=== PATIENT | male | born 1930 | race Caucasian/White ===

== ENCOUNTER 2017-03-07 08:09 | Emergency (ER) | payer MEDICARE, OTHER ==
[~2017-03-07] VITALS: Ht 170.2 cm; Wt 68.0 kg
[~2017-03-07 08:09] MED LIST: LOSA25TA13 PO
[2017-03-07] MEDS: predniSONE 10 MG TABLET PO ONE (08:24)
--- NOTE | 2017-03-07 08:24 | NUR ---
pt is in room #1b. dr marte evaluated the pt.
[2017-03-07] MEDS: IPRATROPIUM BROMIDE 0.5 MG/2.5 ML NEBU NEB ONE (08:28)
[2017-03-07] MEDS: ALBUTEROL SULFATE 2.5 MG/3 ML NEBU NEB ONE (08:28)
[2017-03-07] MEDS ORDERED: IPRATROPIUM BROMIDE 0.5 MG/2.5 ML NEBU ONE (08:34)
[2017-03-07] MEDS ORDERED: ALBUTEROL SULFATE 2.5 MG/3 ML NEBU ONE (08:34)
[2017-03-07] MEDS ORDERED: predniSONE 50 MG TABLET ONE (08:36)
[2017-03-07] MEDS ORDERED: predniSONE 10 MG TABLET ONE (08:37)
[2017-03-07 08:42] LABS: BASOPHILS % (AUTO) 0.5 % (0.0-2.0); EOSINOPHILS % (AUTO) 17.1 % (0.0-7.0); HEMATOCRIT 43.8 % (40-50); HEMOGLOBIN 14.6 G/DL (14.0-18.0); LYMPHOCYTES # (AUTO) 0.9 K/UL (0.8-4.8); LYMPHOCYTES % (AUTO) 16.4 % (20.5-51.5); MEAN CORPUSCULAR HEMOGLOBIN 29.6 UUG (27.0-31.0); MEAN CORPUSCULAR HGB CONC 33 g/dL (32.0-37.0); MEAN CORPUSCULAR VOLUME 88.9 FL (82.0-92.0); MONOCYTES # (AUTO) 0.8 K/UL (0.1-1.30); MONOCYTES % (AUTO) 13.7 % (0.0-11.0); NEUTROPHILS # (AUTO) 2.9 K/UL (1.8-8.9); NEUTROPHILS % (AUTO) 52.3 % (38.5-71.5); PLATELET COUNT (AUTO) 231 K/UL (150-450); RED BLOOD CELL COUNT(AUTO) 4.92 MIL/UL (4.7-6.1); RED CELL DISTRIBUTION WIDTH 11.5 % (11.5-14.5); WHITE BLOOD COUNT (AUTO) 5.6 K/UL (4.0-11.2)
[2017-03-07 08:46] LABS: CALCIUM 9.1 mg/dL (8.5-10.1)
[2017-03-07 08:48] LABS: CREATININE 1.4 mg/dL (0.6-1.3)
[2017-03-07 08:56] LABS: TROPONIN I < 0.017 ng/mL (0.00-0.056)
[2017-03-07 09:02] LABS: LACTIC ACID 1.2 mmol/L (0.4-2.0)
--- NOTE | 2017-03-07 09:12 | NUR ---
pt was d/c to home. d/c instructions given to the pt.
[2017-03-07 09:13] VITALS: BP 132/75
== END 2017-03-07 09:18 | disposition home or self-care (01) ==
LOC: ER 08:09
DX: J20.9 Acute bronchitis, unspecified (principal); I10 Essential (primary) hypertension
CPT/HCPCS: 36415; 70030-TC; 71010; 83605; 85025; 87040; 93005; A4663; J3590; J7512

== ENCOUNTER 2017-03-16 11:49 | Emergency (ER) | payer MEDICARE, OTHER ==
[~2017-03-16] VITALS: Ht 170.2 cm; Wt 70.3 kg
[2017-03-16] MEDS ORDERED: ALBUTEROL SULFATE 2.5 MG/3 ML NEBU NEB ONE ×2 (12:15→14:00)
[2017-03-16] MEDS ORDERED: ALBUTEROL SULFATE 2.5 MG/3 ML NEBU ONE ×2 (12:26→14:14)
--- NOTE | 2017-03-16 15:00 | NUR ---
DR LINDO AT BEDSIDE MADE PATIENT AWARE OF TEST RESULTS WILL BE DC HOME.
--- NOTE | 2017-03-16 15:02 | NUR ---
Patient discharged to home in stable conditon. Written and verbal after care instructions given. Patient verbalizes understanding of instructions.
== END 2017-03-16 15:04 | disposition home or self-care (01) ==
LOC: ER 11:49
DX: J20.9 Acute bronchitis, unspecified (principal); I10 Essential (primary) hypertension
CPT/HCPCS: 71010; 94640; A4663

== ENCOUNTER 2017-05-11 16:52 | Emergency (ER) | payer MEDICARE, OTHER ==
[~2017-05-11] VITALS: Ht 170.2 cm; Wt 68.0 kg
--- NOTE | 2017-05-11 17:13 | NUR ---
PT IS IN ROOM #2A. DR ESPINOSA EVALUATED THE PT.
[2017-05-11] MEDS ORDERED: TDAP DIPH,PERTUSS,TET VAC/PF 0.5 ML DISP.SYRIN IM ONE ×2 (17:15→17:58)
--- NOTE | 2017-05-11 18:54 | NUR ---
DR STEVENSON EVALUATED THE PT. PT WAS D/C TO HOME WITH HIS RELATIVES. D/C INSTRUCTIONS GIVEN TO THE PT BY DR STEVENSON. PT DENIES PAIN. NO BLEEDING. PT's GAIT IS STABLE.
[2017-05-11 18:59] VITALS: BP 141/75
[2017-05-11] MEDS ORDERED: CEPHALEXIN MONOHYDRATE 500 MG CAPSULE PO ONE (19:00)
[2017-05-11] MEDS ORDERED: CEPHALEXIN MONOHYDRATE 500 MG CAPSULE ONE (19:21)
== END 2017-05-11 19:10 | disposition home or self-care (01) ==
LOC: ER 16:52
DX: S02.2XXA Fracture of nasal bones, initial encounter for closed fracture (principal); S09.8XXA Other specified injuries of head, initial encounter; I10 Essential (primary) hypertension; R04.0 Epistaxis; W01.0XXA Fall on same level from slipping, tripping and stumbling without subsequent striking against object, initial encounter; Y93.89 Activity, other specified; Y92.89 Other specified places as the place of occurrence of the external cause; Y99.9 Unspecified external cause status
CPT/HCPCS: 70450; 70486; 90715; A4663

== ENCOUNTER 2018-01-11 09:15 | Emergency (ER) | payer MEDICARE, OTHER ==
[~2018-01-11] VITALS: Ht 170.2 cm; Wt 70.3 kg
[2018-01-11] MEDS ORDERED: ALBUTEROL SULFATE 2.5 MG/3 ML NEBU ONE (09:41)
[2018-01-11] MEDS ORDERED: IPRATROPIUM BROMIDE 0.5 MG/2.5 ML NEBU ONE (09:41)
[2018-01-11] MEDS ORDERED: ALBUTEROL SULFATE 2.5 MG/3 ML NEBU NEB ONE (09:45)
[2018-01-11] MEDS ORDERED: IPRATROPIUM BROMIDE 0.5 MG/2.5 ML NEBU NEB ONE (09:45)
--- NOTE | 2018-01-11 10:10 | NUR ---
Patient discharged to home in stable conditon. Written and verbal after care instructions given to patient and spouse. Patient and family verbalized understanding of instructions. Patient left ER with slow steady gait.
== END 2018-01-11 10:11 | disposition home or self-care (01) ==
LOC: ER 09:16
DX: J20.9 Acute bronchitis, unspecified (principal); I10 Essential (primary) hypertension; Z79.899 Other long term (current) drug therapy
CPT/HCPCS: A4663; J3590

== ENCOUNTER 2019-02-16 20:05 | Inpatient (IN) | payer MEDICARE, OTHER ==
[~2019-02-16] VITALS: Ht 167.6 cm; Wt 29.5 kg
[~2019-02-16 20:05] MED LIST changes: -LOSA25TA13 PO; +LOSA25TA27 PO
--- NOTE | 2019-02-16 20:05 | NUR ---
Dr. Barajas at bedside for MSE.
--- NOTE | 2019-02-16 20:33 | NUR ---
Pt out of ER for CT.
[2019-02-16 20:34] LABS: BASOPHILS % (AUTO) 0.5 % (0.0-2.0); EOSINOPHILS # (AUTO) 0.5 K/uL (0.0-0.7); EOSINOPHILS % (AUTO) 6.8 % (0.0-7.0); HEMATOCRIT 42.4 % (36.7-47.1); HEMOGLOBIN 14.5 g/dL (12.5-16.3); LYMPHOCYTES # (AUTO) 2.3 K/uL (20.0-40.0); LYMPHOCYTES % (AUTO) 34.9 % (20.5-51.5); MEAN CORPUSCULAR HGB CONC 34 g/dL (32.5-36.3); MEAN CORPUSCULAR VOLUME 90.9 fL (73.0-96.2); MONOCYTES # (AUTO) 0.8 K/uL (2.0-10.0); MONOCYTES % (AUTO) 11.5 % (0.0-11.0); NEUTROPHILS # (AUTO) 3.1 K/uL (1.8-8.9); NEUTROPHILS % (AUTO) 46.3 % (38.5-71.5); PLATELET COUNT (AUTO) 248 K/uL (152-348); RED BLOOD CELL COUNT(AUTO) 4.67 MIL/uL (4.06-5.63); WHITE BLOOD COUNT (AUTO) 6.7 K/uL (3.6-10.2)
--- NOTE | 2019-02-16 20:35 | NUR ---
Pt provided urine sample, sent to lab.
[2019-02-16 20:39] LABS: CARBON DIOXIDE 24 mmol/L (21-32); CHLORIDE 107 mmol/L (98-107); CREATININE 1.3 mg/dL (0.6-1.3); GLUCOSE 83 mg/dL (74-106); POTASSIUM 4.5 mmol/L (3.5-5.1); UREA NITROGEN, BLOOD 32 mg/dL (7-18)
--- NOTE | 2019-02-16 20:42 | NUR ---
Pt back to ER from CT.
[2019-02-16 20:52] LABS: ALANINE AMINOTRANSFERASE 24 U/L (16-63); ALKALINE PHOSPHATASE 97 U/L (50-136); ASPARTATE AMINOTRANSFERASE 12 U/L (15-37); BILIRUBIN,DIRECT 0.1 mg/dL (0.0-0.2); BILIRUBIN,TOTAL 0.5 mg/dL (0.2-1.0); TOTAL PROTEIN, SERUM 7.1 g/dL (6.4-8.2)
[2019-02-16 21:02] LABS: *BILIRUBIN,URIN NEGATIVE (NEGATIVE); *BLOOD, URINE NEGATIVE (NEGATIVE); *CLARITY,URINE CLEAR (CLEAR); *COLOR,URINE YELLOW (YELLOW); *KETONES,URINE NEGATIVE (NEGATIVE); *UROBILINOGEN,URINE 0.2 E.U./dl (NORMAL); LEUKOCYTE ESTERASE ,URINE NEGATIVE (NEGATIVE); NITRITE, URINE NEGATIVE (NEGATIVE); UGLUCOSE NEGATIVE (NEGATIVE)
--- NOTE | 2019-02-16 21:39 | NUR ---
Called [facility] to page Dr. Danielle.
[2019-02-16] MEDS ORDERED: CEFTRIAXONE 1 G VIAL ONE (21:43)
[2019-02-16] MEDS ORDERED: ASPIRIN 81 MG TAB.CHEW ONE (21:43)
[2019-02-16] MEDS ORDERED: CEFTRIAXONE 1 G in IV DEXTROSE 5% 50 ML IV ONE (21:45)
[2019-02-16] MEDS ORDERED: ASPIRIN 81 MG TAB.CHEW PO ONE (21:45)
[2019-02-16] MEDS ORDERED: AZITHROMYCIN IV 500 MG in IV DEXTROSE 5% 250 ML IV ONE (21:45)
[2019-02-16] MEDS ORDERED: AZITHROMYCIN 500 MG VIAL IV ONE (21:52)
--- NOTE | 2019-02-16 22:25 | NUR ---
Dr. Barajas speaking with Dr. Rivera. Pt accepted for admission to [facility], diagnosis: altered mental status, possible pneumonia.
--- NOTE | 2019-02-16 22:40 | NUR ---
Report given to Josh MCCLELLAN Tele.
[2019-02-17] VITALS: BP 131/82
[2019-02-17] MEDS ORDERED: VALS80TA2 PO (00:09)
[2019-02-17 04:00] VITALS: BP 150/68
[2019-02-17] MEDS ORDERED: ACETAMINOPHEN 325 MG TABLET PO PRN (05:15)
[2019-02-17] MEDS ORDERED: MAGNESIUM HYDROXIDE 30 ML LIQUID UDC PO PRN (05:15)
[2019-02-17] MEDS ORDERED: ZOLPIDEM 5 MG TABLET PO PRN (05:15)
[2019-02-17] MEDS ORDERED: ONDANSETRON 4 MG/2 ML VIAL IV PRN (05:15)
[2019-02-17] MEDS ORDERED: Z GUARD REMEDY PASTE 57 GM TUBE TOP PRN (05:15)
[2019-02-17 07:06] LABS: CARBON DIOXIDE 25 mmol/L (21-32); CHLORIDE 108 mmol/L (98-107); CREATININE 1.3 mg/dL (0.6-1.3); GLUCOSE 77 mg/dL (74-106); MAGNESIUM 1.8 mg/dL (1.8-2.4); PHOSPHOROUS 3.9 mg/dL (2.5-4.9); POTASSIUM 4.2 mmol/L (3.5-5.1); UREA NITROGEN, BLOOD 27 mg/dL (7-18)
[2019-02-17 07:08] LABS: THYROID STIMULATING HORMONE 2.276 mIU/mL (0.358-3.740)
[2019-02-17 07:31] LABS: BASOPHILS % (AUTO) 0.5 % (0.0-2.0); EOSINOPHILS # (AUTO) 0.5 K/uL (0.0-0.7); HEMATOCRIT 39.3 % (36.7-47.1); HEMOGLOBIN 13.5 g/dL (12.5-16.3); LYMPHOCYTES # (AUTO) 1.7 K/uL (20.0-40.0); LYMPHOCYTES % (AUTO) 25.6 % (20.5-51.5); MEAN CORPUSCULAR HEMOGLOBIN 30.9 uug (23.8-33.4); MEAN CORPUSCULAR HGB CONC 34 g/dL (32.5-36.3); MEAN CORPUSCULAR VOLUME 90.1 fL (73.0-96.2); MONOCYTES # (AUTO) 0.7 K/uL (2.0-10.0); MONOCYTES % (AUTO) 10.1 % (0.0-11.0); NEUTROPHILS # (AUTO) 3.9 K/uL (1.8-8.9); NEUTROPHILS % (AUTO) 56.8 % (38.5-71.5); PLATELET COUNT (AUTO) 223 K/uL (152-348); RED BLOOD CELL COUNT(AUTO) 4.36 MIL/uL (4.06-5.63); WHITE BLOOD COUNT (AUTO) 6.8 K/uL (3.6-10.2)
--- NOTE | 2019-02-17 08:00 | NUR ---
Pt alert and oriented. Pt speaks few Solomon Islander but able to make his needs known. Pt had poor balance when ambulated to bathroom - ordered PT eval. IV patent and no s/s of infiltration. Dr Hong here to see patient. Reconciled home meds re: DIOVAN 80 mg PO Daily ordered per DR Hong.
[2019-02-17] MEDS: VALSARTAN 80 MG TABLET PO SCH (10:05)
[2019-02-17] MEDS: IV 1/2NS 1000 ML 1,000 ML IV PRN (10:06)
[2019-02-17 11:29] VITALS: BP 154/70
--- NOTE | 2019-02-17 12:00 | NUR ---
Pt seen by physical therapy. FWW set up for patient to take home.
[2019-02-17 15:35] VITALS: BP 124/64
--- NOTE | 2019-02-17 18:30 | NUR ---
at bedside states that his is having a hard time "finishing his sentence" and pt is not on his baseline. No drift noted. Deficits noted or weakness. Smiles are equal. Strength equal on both sides on upper and lower extremities. Notified Dr DEL ROSARIO of wifes concerns and gave result of HEAD CT and ok for pt to have a neurology eval. Spoke with Dr sorensen notified of request for neuro evaluation. Pt is in no acute distress. Call light is within reach.
--- NOTE | 2019-02-17 19:30 | NUR ---
Received patient awake and alert in bed with son and at bedside. No signs of acute distress noted. No complaints of pain or SOB. IVF running on the right forearm Safety measures initiated. Bed is low and locked, call light within reach. Will continue to monitor.
[2019-02-17 20:05] VITALS: BP 99/80
[2019-02-17] MEDS ORDERED: CEFTRIAXONE 1 G VIAL IM SCH (21:00)
[2019-02-17] MEDS: CULTURELLE CAPSULE PO SCH (21:25)
[2019-02-17] MEDS: CEFTRIAXONE 1 G in IV DEXTROSE 5% 50 ML IV SCH (22:04)
[2019-02-17] MEDS: HYDROCODONE/APAP 5-325MG TABLET PO PRN (23:05)
[2019-02-17] MEDS: AZITHROMYCIN IV 500 MG in IV DEXTROSE 5% 250 ML IV SCH (23:13)
[2019-02-18] MEDS: HYDROCODONE/APAP 5-325MG TABLET PO PRN (03:19)
--- NOTE | 2019-02-18 06:17 | NUR ---
Patient was very confused. Trying to get out of bed wanting to go home. Put order in for 1:1 sitter. Tried to call on-call for an order of Ativan, but no call back. Patient finally fell asleep around 5AM. No signs of acute distress noted. No signs of pain or SOB. IV on the right forearm is intact and patent. Safety measures given.
[2019-02-18 06:18] LABS: BASOPHILS % (AUTO) 0.1 % (0.0-2.0); EOSINOPHILS % (AUTO) 0.2 % (0.0-7.0); HEMATOCRIT 37.7 % (36.7-47.1); HEMOGLOBIN 12.9 g/dL (12.5-16.3); LYMPHOCYTES # (AUTO) 1.1 K/uL (20.0-40.0); MEAN CORPUSCULAR HGB CONC 34 g/dL (32.5-36.3); MEAN CORPUSCULAR VOLUME 90.4 fL (73.0-96.2); MONOCYTES # (AUTO) 0.7 K/uL (2.0-10.0); MONOCYTES % (AUTO) 8.6 % (0.0-11.0); NEUTROPHILS # (AUTO) 6.4 K/uL (1.8-8.9); NEUTROPHILS % (AUTO) 78.1 % (38.5-71.5); PLATELET COUNT (AUTO) 237 K/uL (152-348); RED BLOOD CELL COUNT(AUTO) 4.17 MIL/uL (4.06-5.63); WHITE BLOOD COUNT (AUTO) 8.2 K/uL (3.6-10.2)
[2019-02-18 06:20] LABS: CARBON DIOXIDE 23 mmol/L (21-32); CHLORIDE 107 mmol/L (98-107); CHOLESTEROL 181 mg/dL (<200); CREATININE 1.4 mg/dL (0.6-1.3); GLUCOSE 97 mg/dL (74-106); HDL CHOLESTEROL 45 mg/dL (40-60); MAGNESIUM 1.7 mg/dL (1.8-2.4); PHOSPHOROUS 3.5 mg/dL (2.5-4.9); POTASSIUM 3.8 mmol/L (3.5-5.1); TRIGLYCERIDES 60 MG/DL (30-150); UREA NITROGEN, BLOOD 28 mg/dL (7-18)
[2019-02-18 06:32] VITALS: BP 111/75
--- NOTE | 2019-02-18 07:15 | NUR ---
PATIENT RECEIVED IN BED, AOX2. 1:1 SITTER AT BEDSIDE. PATENT DENIES PAIN OR SOB AT THIS TIME. ALL NEEDS MET. SAFETY AND FALL PREVENTION IN PLACE. BED IN LOW POSITION AND LOCKED. CALL LIGHT IN REACH. WILL CONTINUE TO MONITOR.
[2019-02-18 07:30] VITALS: BP 137/61
[2019-02-18] MEDS: CULTURELLE CAPSULE PO SCH ×2 (08:08→21:06)
[2019-02-18] MEDS: VALSARTAN 80 MG TABLET PO SCH (08:09)
[2019-02-18] MEDS: IV 1/2NS 1000 ML 1,000 ML IV PRN (09:22)
[2019-02-18] MEDS ORDERED: MAGNESIUM OXIDE 400 MG TABLET PO ONE (10:30)
[2019-02-18 12:30] VITALS: BP 125/60
[2019-02-18 16:30] VITALS: BP 118/56
--- NOTE | 2019-02-18 19:30 | NUR ---
Received patient awake and alert in chair with family and 1:1 sitter. No signs of acute distress noted. No signs of pain or SOB, patient is on room air saturating at 97% IVF running on the right forearm. Safety measures initiated. Call light within reach. Will continue to monitor.
--- NOTE | 2019-02-18 19:42 | NUR ---
REPORT GIVEN TO NIGHT RN. PATIENT AOX2. 1:1 SITTER AT BEDSIDE. LT. FA IV WITH 1/2NS AT 70 CC/HT. VITAL SIGNS STABLE THROUGHOUT THE SHIFT. PATIENT COMPLIANT WITH ALL CARE. SAFETY AND FALL PREVENTION IN PLACE. CALL LIGHT IN REACH. BED IN LOW AND LOCKED POSITION.
[2019-02-18 20:05] VITALS: BP 143/67
[2019-02-18] MEDS: CEFTRIAXONE 1 G in IV DEXTROSE 5% 50 ML IV SCH (21:53)
[2019-02-18] MEDS: AZITHROMYCIN IV 500 MG in IV DEXTROSE 5% 250 ML IV SCH (22:31)
[2019-02-19] MEDS: IV 1/2NS 1000 ML 1,000 ML IV PRN (03:03)
[2019-02-19 05:13] VITALS: BP 104/66
--- NOTE | 2019-02-19 06:14 | NUR ---
Patient slept well throughout the shift. 1:1 sitter at bedside. Patient was less confused and agitated than previous night. Still tries to get up without calling for help. Medications given as ordered, Safety measures given.
[2019-02-19 06:34] LABS: CARBON DIOXIDE 24 mmol/L (21-32); CHLORIDE 109 mmol/L (98-107); CREATININE 1.3 mg/dL (0.6-1.3); GLUCOSE 86 mg/dL (74-106); MAGNESIUM 2.2 mg/dL (1.8-2.4); POTASSIUM 4.4 mmol/L (3.5-5.1); UREA NITROGEN, BLOOD 31 mg/dL (7-18)
--- NOTE | 2019-02-19 07:12 | NUR ---
Patient in bed laying comfortably with 1:1 sitter at bedside. no SON , no c/o pain at this time. bed in low position, with 2 drill press operator numerical control rails up and bed alarm, kept clean and dry at all times, Safety measures given. Will continue to monitor.
[2019-02-19] MEDS: CULTURELLE CAPSULE PO SCH ×2 (08:21→20:16)
[2019-02-19] MEDS: VALSARTAN 80 MG TABLET PO SCH (08:21)
[2019-02-19 11:13] VITALS: BP 118/55
[2019-02-19] MEDS: ATORVASTATIN 20 MG TABLET PO SCH ×2 (12:43→20:16)
[2019-02-19] MEDS: ASPIRIN EC 81 MG TABLET.DR PO SCH (12:43)
[2019-02-19 15:36] VITALS: BP 149/73
--- NOTE | 2019-02-19 18:38 | NUR ---
Patient in bed laying comfortably with 1:1 sitter at bedside. No SOB noted , No c/o pain at this time. bed in low position, with 2 crayon painter rails up and bed alarm, kept clean and dry at all times, Safety measures given. Will continue to monitor and continue treatment.
[2019-02-19 20:00] VITALS: BP 148/79
--- NOTE | 2019-02-19 20:00 | NUR ---
RECEIVED PATIENT AWAKE, SITTING AT BEDSIDE WITH FAMILY AND 1:1 SITTER. PATIENT IS A/O X3. FARSI SPEAKING. NO C/O PAIN OR DISCOMFORT. H/L INTACT AND PATENT. CALL LIGHT IN REACH. ALL NEEDS ATTENDED, WILL CONTINUE TO MONITOR AND ASSESS.
[2019-02-19] MEDS: CEFTRIAXONE 1 G in IV DEXTROSE 5% 50 ML IV SCH (21:20)
[2019-02-19] MEDS ORDERED: AZITHROMYCIN 250 MG TABLET PO SCH (22:00)
[2019-02-20] MEDS: IV 1/2NS 1000 ML 1,000 ML IV PRN (05:45)
--- NOTE | 2019-02-20 05:52 | NUR ---
PATIENT ASLEEP IN BED. SITTER PRESENT AT BEDSIDE. PATIENT SLEPT WELL THROUGHOUT THE NIGHT. BED ALARM ON. CALL LIGHT IN REACH. ALL NEEDS ATTENDED. WILL CONTINUE TO MONITOR AND ASSESS.
[2019-02-20 06:44] VITALS: BP 154/60
[2019-02-20] MEDS: ASPIRIN EC 81 MG TABLET.DR PO SCH (08:01)
[2019-02-20] MEDS: VALSARTAN 80 MG TABLET PO SCH (08:07)
[2019-02-20] MEDS: CULTURELLE CAPSULE PO SCH (08:08)
--- NOTE | 2019-02-20 10:53 | NUR ---
Received patient awake in bed. AOx2. Continue with 1:1 sitter for safety. Continue ATB treatment for PNE. no adverse reaction noted. Continue IV 0.45% NS @ 75cc/hr. infusing well. IV site on right forearm G20. no signs of infiltration noted. will continue monitor
[2019-02-20 12:05] VITALS: BP 121/56
[2019-02-20] MEDS ORDERED: ATOR20TA PO (13:40)
[2019-02-20] MEDS ORDERED: ASPI-618 PO (13:40)
[2019-02-20 15:30] VITALS: BP 120/66
== END 2019-02-20 19:38 | DRG 193 ==
LOC: ER 20:07 → TELE3 22:48 → MEDSURG3 02-17 18:09
PROVIDERS: ADMIT Internal Medicine; ATTEND Internal Medicine
DX: J15.9 Unspecified bacterial pneumonia (principal); G92 Toxic encephalopathy; I63.9 Cerebral infarction, unspecified; N17.0 Acute kidney failure with tubular necrosis; R47.01 Aphasia; E86.9 Volume depletion, unspecified; I10 Essential (primary) hypertension; I70.0 Atherosclerosis of aorta; F03.90 Unspecified dementia, unspecified severity, without behavioral disturbance, psychotic disturbance, mood disturbance, and anxiety
CPT/HCPCS: 36415; 70030-TC; 70450; 71045; 82747; 83605; 83735; 84100; 84443; 85014; 85025; 85730; 86592; 87040; 87086; 93005; 97110; 97116; 97530; A4663; G0378; J0456; J0696; J3490; J7060; Q0144

== ENCOUNTER 2019-02-20 18:00 | Inpatient (IN) | payer MEDICARE, OTHER ==
[~2019-02-20] VITALS: Ht 170.2 cm; Wt 74.8 kg
[~2019-02-20 18:00] MED LIST changes: +ASPI-618 PO; +ATOR20TA PO; -LOSA25TA27 PO; +VALS80TA2 PO
--- NOTE | 2019-02-20 21:24 | NUR ---
Admitting this 88 y/o M from 3rd floor med surg at [facility] with diagnosis of Right CVA. No acute distress noted. Primarily Farsi speaking but able to communicate basic needs in Icelandic. Verbally responsive and able to communicate basic needs. Denies pain or discomfort. Routine admission care done. Oriented to unit, room and therapy schedule. Skin warm, dry and intact. Ambulatory to restroom x 1 assist. NIH stroke scale completed. Under [facility] nephrology medical group, Dr. Britt notified and verbalized that he will complete med recon via computer. Dr. Kay made aware of admission. All safety measures and fall precautions maintained. Call light and all personal belongings within reach. MRSA swab completed and sent to lab. Will continue to monitor.
[2019-02-20 21:36] VITALS: BP 128/59
[2019-02-20] MEDS ORDERED: Z GUARD REMEDY PASTE 57 GM TUBE TOP PRN (22:45)
[2019-02-21 05:50] VITALS: BP 150/73
--- NOTE | 2019-02-21 06:11 | NUR ---
Slept intermittently throughout shift. Noted to be impulsive despite multiple attempts to educate use of call light. All safety measures and fall precautions maintained. Call light within reach at all times. Will endorse to oncoming shift.
[2019-02-21 07:45] VITALS: BP 130/64
[2019-02-21] MEDS: ATORVASTATIN 20 MG TABLET PO SCH ×2 (15:00→20:15)
--- NOTE | 2019-02-21 16:03 | NUR ---
PER PHARMACY HOLD 1500 DOSE FOR LIPITOR AND GIVE 2100 DOSE TONIGHT
[2019-02-21] MEDS: ASPIRIN EC 81 MG TABLET.DR PO SCH (16:11)
[2019-02-21] MEDS: VALSARTAN 80 MG TABLET PO SCH (16:11)
[2019-02-21 16:14] VITALS: BP 146/62
[2019-02-21 19:48] VITALS: BP 142/52
--- NOTE | 2019-02-21 20:27 | NUR ---
Received pt sitting on the chair at bedside. AAO x3-4. Farsi speaking, able to make needs known. Family at bedside. Noted pt ambulating in the hallway using walker with standby assist from family. Tolerated ambulation. No acute distress noted. No c/o pain or discomfort. Due med given as ordered. Safety measures maintained. Call light and personal belongings within reach. Will continue to monitor.
[2019-02-21] MEDS ORDERED: ZOLPIDEM 5 MG TABLET PO PRN (22:15)
--- NOTE | 2019-02-22 02:45 | NUR ---
Pt kept getting out of bed without assist x8. Noted to be not sleeping even after giving Ambien 3 hrs ago. Tried to redirect pt, but unable to. Made pt comfortable and walked with pt in the hallway. Still restless and getting oob at this time. Paged on-call Watson PICHARDO. No call back. Followed up after 15 mins, still awaiting call back at this time. Bed alarm on. Will continue to monitor.
--- NOTE | 2019-02-22 03:07 | NUR ---
Received call back from Dr. Chaudhari. Relayed situation. stated that a doctor will come in tomorrow to see the pt. Obtained order for 1:1 sitter. Pt now sleeping. Will continue to monitor.
--- NOTE | 2019-02-22 04:10 | NUR ---
Pt woke up. Abruptly stood up and presented an unsteady gait. Staff approached pt to help with ambulation but pt shown aggressiveness by pushing staff. Notified Dr. Chaudhari. New order for Ativan 2mg PO x1. Will carry out order. Continue to monitor.
[2019-02-22] MEDS ORDERED: LORAZEPAM 1 MG TABLET PO PRN (04:15)
--- NOTE | 2019-02-22 04:37 | NUR ---
Pt went out of the room and started ambulating in the hallway. Refusing assistance. Security was called. Escorted pt back to bed. Pt took med but later on spit them out whole and threw away. Caught pt throwing it under the bed. Pt continues to refuse meds. Pt is now in bed and resting. Will notify MD for another order if pt continues to be aggressive. Continue to monitor.
[2019-02-22 04:42] VITALS: BP 165/90
[2019-02-22 05:12] VITALS: BP 165/90
[2019-02-22 08:00] VITALS: BP 137/85
[2019-02-22] MEDS: ASPIRIN EC 81 MG TABLET.DR PO SCH (08:53)
[2019-02-22] MEDS: VALSARTAN 80 MG TABLET PO SCH (08:53)
[2019-02-22 16:00] VITALS: BP 121/64
[2019-02-22 19:41] VITALS: BP 142/59
[2019-02-22] MEDS: ATORVASTATIN 20 MG TABLET PO SCH (20:19)
[2019-02-22] MEDS: ACETAMINOPHEN 325 MG TABLET PO PRN (20:50)
--- NOTE | 2019-02-22 20:55 | NUR ---
Received pt sitting on the chair. Family and 1:1 sitter at bedside. Ambulated in the hallway with assistance. No acute distress noted. C/o 2-3/10 pain on the knees. Notified Dr. Alexander, new order for Tylenol 650mg QID PRN. Carried out order. Due med given as ordered. Pt is now back to bed and resting. 1:1 sitter at bedside. Safety measures maintained. Call light and personal belongings within reach. Will continue to monitor.
--- NOTE | 2019-02-23 06:22 | NUR ---
Pt only slept 1.5 hrs t/o the night. Ambulated 3x in the hallway with the sitter. Pt stated that he wants to go home. Reoriented pt. Pt tries to get out of bed multiple times without asking for assistance. Noted to be impulsive. Unsteady gait noted. All needs attended to promptly.
[2019-02-23 08:00] VITALS: BP 165/80
--- NOTE | 2019-02-23 09:00 | NUR ---
Up with occupational therapy, tolerating well. With minimal, tolerable pain over right shoulder 3/10. With baseline LOC, no dizziness or headache noted. Not in any form of distress. With some aphasia noted. at bedside.
[2019-02-23] MEDS: ASPIRIN EC 81 MG TABLET.DR PO SCH (09:17)
[2019-02-23] MEDS: VALSARTAN 80 MG TABLET PO SCH (09:17)
--- NOTE | 2019-02-23 10:14 | NUR ---
INDIVIDUALIZE OVERALL PLAN OF CARE
--- NOTE | 2019-02-23 10:50 | NUR ---
Informed Dr Alexander of agitation from previous nights and patient's lack of sleep. ordered Psychiatric consult. Dr Salinas, made aware of consult.
[2019-02-23 16:00] VITALS: BP 118/54
--- NOTE | 2019-02-23 16:07 | NUR ---
Seen and examined by Dr. Rivera, informed about patient having poor sleep. Dr said he already informed neurology. Dr also ordered Urinalysis for frequent urination.
[2019-02-23 18:00] LABS: *BILIRUBIN,URIN NEGATIVE (NEGATIVE); *BLOOD, URINE NEGATIVE (NEGATIVE); *CLARITY,URINE CLEAR (CLEAR); *COLOR,URINE YELLOW (YELLOW); *KETONES,URINE NEGATIVE (NEGATIVE); *UROBILINOGEN,URINE 0.2 E.U./dl (NORMAL); LEUKOCYTE ESTERASE ,URINE NEGATIVE (NEGATIVE); NITRITE, URINE NEGATIVE (NEGATIVE); PH,URINE 6.5 (5.0-8.0); UGLUCOSE NEGATIVE (NEGATIVE)
[2019-02-23 19:02] LABS: BACTERIA,URINE NONE SEEN /HPF (NONE SEEN); RBC,URINE NONE SEEN /HPF (0-3); SQUAMOUS EPITHELIAL CELL,UR NONE SEEN /HPF (NONE SEEN); WBC,URINE 0-3 /HPF (0-3)
[2019-02-23] MEDS: ATORVASTATIN 20 MG TABLET PO SCH (20:17)
[2019-02-23 20:35] VITALS: BP 146/54
--- NOTE | 2019-02-24 00:26 | NUR ---
Received pt in chair with family members at bedside. No acute distress noted. AAO x 2-3 with some forgetfulness. Verbally responsive and able to communicate basic needs in latvian; primarily Farsi speaking. 1:1 sitter at bedside for safety. All due medications given as ordered, tolerated well. All safety measures and fall precautions maintained. Call light and all personal belongings within reach. Will continue to monitor.
[2019-02-24 04:00] VITALS: BP 131/68
--- NOTE | 2019-02-24 07:45 | NUR ---
Patient awake, alert, not in any form of distress. No complain of any pain or discomfort. Assisted patient to the bathroom by FARM EQUIPMENT SERVICE TECHNICIAN and back to bed. With a sitter for safety.
[2019-02-24 08:00] VITALS: BP 166/72
[2019-02-24] MEDS: ASPIRIN EC 81 MG TABLET.DR PO SCH (09:04)
[2019-02-24] MEDS: VALSARTAN 80 MG TABLET PO SCH (09:13)
[2019-02-24 10:30] VITALS: BP 125/62
[2019-02-24 16:00] VITALS: BP 112/53
--- NOTE | 2019-02-24 17:30 | NUR ---
Dr. Salinas came to see patient, gave MD update regarding patient's behavior as endorsed by lockstitch pocket setter, with no new order at this time.
[2019-02-24 19:41] VITALS: BP 148/65
[2019-02-24] MEDS: ATORVASTATIN 20 MG TABLET PO SCH (20:49)
[2019-02-24] MEDS: ACETAMINOPHEN 325 MG TABLET PO PRN (20:49)
--- NOTE | 2019-02-24 21:50 | NUR ---
Received pt in bed, appearing to be asleep but easily arousable to verbal stimuli and light touch. No acute distress noted. No facial indications of pain noted. All due medications given, tolerated well. Sitter at bedside for safety. All safety measures and fall precautions maintained. Call light and all personal belongings within reach. Will continue to monitor.
[2019-02-25 05:44] VITALS: BP 155/78
[2019-02-25 07:43] VITALS: BP 148/69
--- NOTE | 2019-02-25 07:51 | NUR ---
Patient noted resting in bed with eyes closed, no facial cues of pain noted, no signs of distress, 1 to 1 sitter noted at the door, call light in reach, bed locked and in lowest position, all needs met at this time
[2019-02-25] MEDS: VALSARTAN 80 MG TABLET PO SCH (08:05)
[2019-02-25] MEDS: ASPIRIN EC 81 MG TABLET.DR PO SCH (08:05)
[2019-02-25 16:08] VITALS: BP 133/69
[2019-02-25 19:55] VITALS: BP 130/66
[2019-02-25] MEDS: ATORVASTATIN 20 MG TABLET PO SCH (20:07)
[2019-02-25] MEDS: ACETAMINOPHEN 325 MG TABLET PO PRN (23:25)
--- NOTE | 2019-02-26 04:44 | NUR ---
Patient received in bed, AAO x2, able to make needs known. No acute distress or SOB noted. On room air. Family at the bedside. No Complain of pain. Physical assessment done. All due medications given as ordered and well tolerated. On 1:1 sitter for safety. Hourly round done. Safety measures observed. Fall precaution maintained. Bed in low position, side rails up x2 for safety, brake and alarm on. call light and personal belongings within reach. Continue to monitor and will endorse to the day shift nurse accordingly.
[2019-02-26 05:00] VITALS: BP 144/70
[2019-02-26] MEDS: ASPIRIN EC 81 MG TABLET.DR PO SCH (09:09)
[2019-02-26] MEDS: VALSARTAN 80 MG TABLET PO SCH (09:09)
--- NOTE | 2019-02-26 09:30 | NUR ---
Received patient awake, alert x1-2. With sitter at bedside. No new weakness noted, with baseline LOC. Not in any form of distress. Still impulsive and forgetful at times. Re-oriented with help of . Was able to tolerate and participate with therapy, able to ambulate well with front wheel walker.
[2019-02-26 17:00] VITALS: BP 144/60
[2019-02-26 20:16] VITALS: BP 147/77
[2019-02-26] MEDS: ACETAMINOPHEN 325 MG TABLET PO PRN (21:06)
[2019-02-26] MEDS: ATORVASTATIN 20 MG TABLET PO SCH (21:06)
--- NOTE | 2019-02-26 21:26 | NUR ---
Received pt walking in the hallway using the walker accompanied by . ANAHYO x2. Farsi speaking. No acute distress noted. Sitter at bedside. Safety measures maintained. Call light and personal belongings within reach. Will continue to monitor.
[2019-02-27 06:12] VITALS: BP 125/63
--- NOTE | 2019-02-27 07:24 | NUR ---
Pt slept intermittently for 3.5 hours t/o the shift. Sitter at bedside. All needs attended to promptly.
[2019-02-27] MEDS: ACETAMINOPHEN 325 MG TABLET PO PRN ×2 (07:47→21:14)
--- NOTE | 2019-02-27 07:52 | NUR ---
patient is alert x 1-2, no sob,resp even nonlabored, skin warm and dry to touch, patient is sitting in chair and complained mild body pain, tylenol given as ordered, no acute distress noted at this time.
[2019-02-27 08:00] VITALS: BP 173/80
[2019-02-27] MEDS: ASPIRIN EC 81 MG TABLET.DR PO SCH (08:01)
[2019-02-27] MEDS: VALSARTAN 80 MG TABLET PO SCH (08:01)
--- NOTE | 2019-02-27 13:03 | NUR ---
INTERDISCIPLINARY TEAM CONFERENCE
[2019-02-27 17:57] VITALS: BP 136/62
[2019-02-27] MEDS: DIAZEPAM 2 MG TABLET PO PRN (18:36)
--- NOTE | 2019-02-27 19:02 | NUR ---
END OF SHIFT NOTE PATIENT IS ALERT, ORIENTED 1-2, VERBALLY RESPONSIVE, NO SOB,RESP EVEN NONLABORED,SKIN WARM AND DRY TO TOUCH, NO ACUTE DISTRESS NOTED, PATIENT NOTED WITH ANXIOUS MOOD, 1;1 SITTER, DR IBARRA ORDERED DIAZEPAM ORDERED. ADMINISTERED ORDERED, SAFETY PRECAUTIONS RENDERED. ALL NEEDS MET TIMELY, WILL ENDORSE TO SUPERVISOR PLEATING ACCORDINGLY
[2019-02-27 19:30] VITALS: BP 150/72
--- NOTE | 2019-02-27 20:47 | NUR ---
Received pt sitting on the chair. Family and sitter at bedside. AAO x2, Farsi speaking. No acute distress noted. No c/o pain or discomfort at this time. Safety measures maintained. Call light and personal belongings within reach. Will continue to monitor.
[2019-02-27] MEDS: ATORVASTATIN 20 MG TABLET PO SCH (21:14)
[2019-02-28 06:41] LABS: BASOPHILS % (AUTO) 0.2 % (0.0-2.0); EOSINOPHILS # (AUTO) 0.3 K/uL (0.0-0.7); EOSINOPHILS % (AUTO) 4.3 % (0.0-7.0); HEMATOCRIT 39.1 % (36.7-47.1); HEMOGLOBIN 13.4 g/dL (12.5-16.3); LYMPHOCYTES # (AUTO) 1.7 K/uL (20.0-40.0); LYMPHOCYTES % (AUTO) 25.1 % (20.5-51.5); MEAN CORPUSCULAR HEMOGLOBIN 31.2 uug (23.8-33.4); MEAN CORPUSCULAR HGB CONC 34 g/dL (32.5-36.3); MEAN CORPUSCULAR VOLUME 91.3 fL (73.0-96.2); MONOCYTES # (AUTO) 0.7 K/uL (2.0-10.0); MONOCYTES % (AUTO) 11.2 % (0.0-11.0); NEUTROPHILS % (AUTO) 59.2 % (38.5-71.5); PLATELET COUNT (AUTO) 246 K/uL (152-348); RED BLOOD CELL COUNT(AUTO) 4.28 MIL/uL (4.06-5.63); WHITE BLOOD COUNT (AUTO) 6.7 K/uL (3.6-10.2)
[2019-02-28 07:00] LABS: CARBON DIOXIDE 28 mmol/L (21-32); CHLORIDE 106 mmol/L (98-107); CREATININE 1.5 mg/dL (0.6-1.3); GLUCOSE 87 mg/dL (74-106); MAGNESIUM 2.2 mg/dL (1.8-2.4); PHOSPHOROUS 4.2 mg/dL (2.5-4.9); POTASSIUM 4.2 mmol/L (3.5-5.1); UREA NITROGEN, BLOOD 33 mg/dL (7-18)
--- NOTE | 2019-02-28 07:08 | NUR ---
Pt slept intermittently for 4 hours.
[2019-02-28 08:00] VITALS: BP 147/73
[2019-02-28] MEDS: VALSARTAN 80 MG TABLET PO SCH (08:18)
[2019-02-28] MEDS: ASPIRIN EC 81 MG TABLET.DR PO SCH (08:18)
--- NOTE | 2019-02-28 08:41 | NUR ---
Patient noted sitting up on the side of the bed, 1 to 1 sitter noted at bedside, no complaints of pain, no signs of distress, call light in reach, bed locked and in lowest position, took all AM medications
[2019-02-28 16:00] VITALS: BP 145/73
[2019-02-28 19:11] VITALS: BP 128/60
--- NOTE | 2019-02-28 19:43 | NUR ---
Patient received sitting in wheelchair, AAO x3, able to make needs known. No acute distress or SOB noted. On room air. Family at the bedside. No Complain of pain. Physical assessment and stroke scale done. On 1:1 sitter for safety. Safety measures observed. Fall precaution maintained. Bed in low position, side rails up x2 for safety, brake and alarm on. call light and personal belongings within reach. Continue to monitor.
[2019-02-28] MEDS: ATORVASTATIN 20 MG TABLET PO SCH (20:20)
[2019-02-28] MEDS: DIAZEPAM 2 MG TABLET PO PRN (21:17)
[2019-03-01 05:10] VITALS: BP 122/64
--- NOTE | 2019-03-01 06:05 | NUR ---
End of the shift note Patient was stable throughout the shift and has a good sleep last night with help of diazepam 2 mg tab. No acute distress or SOB noted. On room air. No Complain of pain. On 1:1 sitter for safety. Stroke sale checked. Physical assessment done. All due medications given as ordered and well tolerated. Hourly round done. Safety measures observed. Fall precaution maintained. Bed in low position, side rails up x2 for safety, brake and alarm on. call light and personal belongings within reach. Continue to monitor and will endorse to the day shift nurse accordingly.
[2019-03-01 08:00] VITALS: BP 158/74
--- NOTE | 2019-03-01 08:15 | NUR ---
Received patient, awake alert x2. With 1:1 sitter at bed side. No new weakness noted. With baseline LOC. Safety precautions maintained.
[2019-03-01] MEDS: ASPIRIN EC 81 MG TABLET.DR PO SCH (09:27)
[2019-03-01] MEDS: VALSARTAN 80 MG TABLET PO SCH (09:28)
--- NOTE | 2019-03-01 09:30 | NUR ---
Tolerated therapy well, able to ambulate. No pain noted. Compliant with care, but with periods of forgetfulness, sometimes unaware of limitations.
[2019-03-01 16:00] VITALS: BP 97/61
--- NOTE | 2019-03-01 19:32 | NUR ---
Patient received sitting in wheelchair, AAO x3, able to make needs known. No acute distress or SOB noted. On room air. Family at the bedside. No Complain of pain. Physical assessment and stroke scale done. Educated patient to drink more water. On 1:1 sitter for safety. Safety measures observed. Fall precaution maintained. Bed in low position, side rails up x2 for safety, brake and alarm on. call light and personal belongings within reach. Continue to monitor.
[2019-03-01 19:38] VITALS: BP 146/67
[2019-03-01] MEDS: ATORVASTATIN 20 MG TABLET PO SCH (20:00)
[2019-03-02] MEDS: DIAZEPAM 2 MG TABLET PO PRN ×2 (01:52→20:20)
[2019-03-02 06:22] VITALS: BP 147/66
[2019-03-02 08:00] VITALS: BP 116/68
--- NOTE | 2019-03-02 08:23 | NUR ---
Patient noted sitting up in chair, 1 to 1 sitter noted at bedside, call light in reach, walker in reach, no complaints of pain, no signs of distress noted
[2019-03-02] MEDS: ASPIRIN EC 81 MG TABLET.DR PO SCH (08:49)
[2019-03-02] MEDS: VALSARTAN 80 MG TABLET PO SCH (08:49)
[2019-03-02 16:00] VITALS: BP 125/61
--- NOTE | 2019-03-02 19:17 | NUR ---
Patient noted resting in bed at this time, no complaints of pain this shift, no signs of distress, continues on 1 to 1 sitter, no changes noted.
[2019-03-02 19:26] VITALS: BP 154/65
--- NOTE | 2019-03-02 19:35 | NUR ---
PATIENT ALERT AND ORIENTED X 2-3. FAMILY AT BEDSIDE. NO C/O PAIN OR SOB AT THIS TIME. 1:[address] FOR SAFETY. WRIST BAND NOTED TO MISSING. NEW WRIST BAND RECEIVED FROM ADMITTING. SIDE RAILS UP BILATERALLY FOR SAFETY. CALL LIGHT AND FREQUENTLY USED TIMES WITHIN REACH. WILL CONTINUE TO MONITOR.
[2019-03-02] MEDS: ATORVASTATIN 20 MG TABLET PO SCH (20:20)
[2019-03-03 05:20] VITALS: BP 129/65
--- NOTE | 2019-03-03 06:42 | NUR ---
Patient slept well during solvent plant operator. All due medications given-tolerated well. PRN Valium to aid in sleep. 1:1 sitter maintained for safety. Side rails up bilaterally for safety. Call light and frequently used items within reach. Will endorse to oncoming shift accordingly.
--- NOTE | 2019-03-03 06:44 | NUR ---
Patient was stable throughout the shift and has a good sleep last night. No acute distress or SOB noted. On room air. No Complain of pain. On 1:1 sitter for safety. Stroke sale checked. left ankle wound dressing done, cleansed with NS, pat dry, applied Bactroban ointment, covered by Kerlix, wrapped. Hemodialysis done, 1000 ml fluid removed. Hourly round done. Safety measures observed. Fall precaution maintained. Bed in low position, side rails up x2 for safety, brake and alarm on. call light and personal belongings within reach. Continue to monitor and will endorse to the day shift nurse accordingly. Addendum: 03/05/19 at 1911 by MARCOS YAÑEZ RN Please discard this note. Note for wrong patient.
[2019-03-03 07:30] LABS: BASOPHILS % (AUTO) 0.6 % (0.0-2.0); EOSINOPHILS # (AUTO) 0.4 K/uL (0.0-0.7); EOSINOPHILS % (AUTO) 5.3 % (0.0-7.0); LYMPHOCYTES # (AUTO) 1.8 K/uL (20.0-40.0); LYMPHOCYTES % (AUTO) 24.2 % (20.5-51.5); MEAN CORPUSCULAR HEMOGLOBIN 30.9 uug (23.8-33.4); MEAN CORPUSCULAR HGB CONC 34 g/dL (32.5-36.3); MEAN CORPUSCULAR VOLUME 90.7 fL (73.0-96.2); MONOCYTES # (AUTO) 0.8 K/uL (2.0-10.0); MONOCYTES % (AUTO) 11.2 % (0.0-11.0); NEUTROPHILS # (AUTO) 4.3 K/uL (1.8-8.9); NEUTROPHILS % (AUTO) 58.7 % (38.5-71.5); PLATELET COUNT (AUTO) 264 K/uL (152-348); RED BLOOD CELL COUNT(AUTO) 4.52 MIL/uL (4.06-5.63); WHITE BLOOD COUNT (AUTO) 7.3 K/uL (3.6-10.2)
[2019-03-03 07:48] VITALS: BP 138/74
[2019-03-03] MEDS: ASPIRIN EC 81 MG TABLET.DR PO SCH (08:30)
[2019-03-03] MEDS: VALSARTAN 80 MG TABLET PO SCH (08:30)
--- NOTE | 2019-03-03 08:31 | NUR ---
Patient noted sitting in chair, 1 to 1 sitter noted at chair side, no complaints of pain, no signs of distress, call light in reach, bed side table at arms reach, will continue plan of care
[2019-03-03 08:54] LABS: ALANINE AMINOTRANSFERASE 40 U/L (16-63); ALKALINE PHOSPHATASE 93 U/L (50-136); ASPARTATE AMINOTRANSFERASE 25 U/L (15-37); CARBON DIOXIDE 26 mmol/L (21-32); CHLORIDE 106 mmol/L (98-107); CREATININE 1.3 mg/dL (0.6-1.3); GLUCOSE 91 mg/dL (74-106); MAGNESIUM 2.2 mg/dL (1.8-2.4); PHOSPHOROUS 3.8 mg/dL (2.5-4.9); POTASSIUM 4.1 mmol/L (3.5-5.1); UREA NITROGEN, BLOOD 35 mg/dL (7-18)
[2019-03-03 15:36] VITALS: BP 103/58
--- NOTE | 2019-03-03 19:15 | NUR ---
no changes this shift,no behaviors noted, continues on 1 to 1 sitter
[2019-03-03 19:18] VITALS: BP 135/59
[2019-03-03] MEDS: ATORVASTATIN 20 MG TABLET PO SCH (20:30)
[2019-03-03] MEDS: DIAZEPAM 2 MG TABLET PO PRN (20:30)
--- NOTE | 2019-03-03 21:29 | NUR ---
Received pt resting in bed. AAO x2. No acute distress noted. No c/o pain or discomfort. 1:1 sitter at bedside. Safety measures maintained. Call light and personal belongings within reach. Will continue to monitor.
[2019-03-04 05:33] VITALS: BP 158/77
[2019-03-04 07:55] VITALS: BP 159/72
[2019-03-04] MEDS: ASPIRIN EC 81 MG TABLET.DR PO SCH (08:35)
[2019-03-04] MEDS: VALSARTAN 80 MG TABLET PO SCH (08:37)
--- NOTE | 2019-03-04 09:07 | NUR ---
Received pt. on bed, comfortable in no distress. A/OX2 verbally responsive and follow commands. On 1:1 sitter for safety. Denies CP or SOB. All due medications given and tolerated well. No new skin condition noted. All pt. needs attended and met promptly. Safety measures in place. Call light and all frequently used items within pt. reach.
[2019-03-04 16:00] VITALS: BP_SYST 132; BP_SYST 133; BP_DIAS 67; BP_DIAS 72
--- NOTE | 2019-03-04 18:29 | NUR ---
End of shift note: No sign of acute distress or SOB was noted. Kept pt clean and dry throughout this shift. Safety measures maintained. All needs attended and met promptly. Bed in low position, brake on, side rails up x2 as an enabler. Call light and all frequently used items within pt. reach. Will endorse to next shift accordingly
[2019-03-04 19:28] VITALS: BP 131/72
--- NOTE | 2019-03-04 19:41 | NUR ---
Patient received in chair, with family in room. Alert and oriented x 2-3, with periods of confusion. No C/O pain or SOB at this time. 1:1 sitter D/C. No latent stroke signs noted at this time. Call light and frequently used times within reach Will continue to monitor.
[2019-03-04] MEDS: DIAZEPAM 2 MG TABLET PO PRN (20:43)
[2019-03-04] MEDS: ATORVASTATIN 20 MG TABLET PO SCH (20:43)
[2019-03-05 06:00] VITALS: BP 146/95
[2019-03-05] MEDS: ASPIRIN EC 81 MG TABLET.DR PO SCH (09:34)
[2019-03-05] MEDS: VALSARTAN 80 MG TABLET PO SCH (09:37)
[2019-03-05 09:41] VITALS: BP 145/81
--- NOTE | 2019-03-05 10:11 | NUR ---
Received pt. in bed, comfortable in no distress. A/OX1-2 verbally responsive and follow commands. Denies CP or SOB. All due medications given and tolerated well. No new skin condition noted. Seen by bedside for support. All pt. needs attended and met promptly. Safety measures in place. Call light and all frequently used items within pt. reach.
[2019-03-05 16:28] VITALS: BP 126/68
--- NOTE | 2019-03-05 18:06 | NUR ---
End of shift note: No significant change during this shift. All needs attended and met promptly. Safety measures in placed. Frequent visual check performed. Bed in low position, brake on, side rails up x2 as an enabler. Call light and all frequently used items within pt. reach. Will endorse to next shift accordingly
[2019-03-05 19:29] VITALS: BP 136/64
--- NOTE | 2019-03-05 19:40 | NUR ---
Patient received in bed, AAO x1, only by name, confused, but able to make needs known. No acute distress or SOB noted. On room air. No Complain of pain. Physical assessment and stroke scale done. Educated patient to drink more water. Safety measures observed. Fall precaution maintained. Bed in low position, side rails up x2 for safety, brake and alarm on. call light and personal belongings within reach. Continue to monitor.
[2019-03-05] MEDS: MEMANTINE HCL 5 MG TABLET PO SCH (20:09)
[2019-03-05] MEDS: ATORVASTATIN 20 MG TABLET PO SCH (20:09)
[2019-03-05] MEDS: DIAZEPAM 2 MG TABLET PO PRN (21:01)
[2019-03-06 04:36] VITALS: BP 136/79
--- NOTE | 2019-03-06 06:03 | NUR ---
End of the shift note Patient was stable throughout the shift and has a good sleep last night with help of diazepam 2 mg tab. No acute distress or SOB noted. On room air. No Complain of pain. Stroke sale checked. Physical assessment done. All due medications given as ordered and well tolerated. Assisted him to the bathroom as needed. Hourly round done. Safety measures observed. Fall precaution maintained. Bed in low position, side rails up x2 for safety, brake and alarm on. call light and personal belongings within reach. Continue to monitor and will endorse to the day shift nurse accordingly.
--- NOTE | 2019-03-06 08:15 | NUR ---
Received patient, awake alert x2-3. Denies any pain, now new weakness with baseline LOC. Not in any form of distress, Would be impulsive and tries to get out of bed by himself, re-oriented and maintained safety. Forgetful at times ad reminded to use call light for needs.
[2019-03-06] MEDS: ASPIRIN EC 81 MG TABLET.DR PO SCH (08:35)
[2019-03-06] MEDS: VALSARTAN 80 MG TABLET PO SCH (08:35)
[2019-03-06] MEDS: MEMANTINE HCL 5 MG TABLET PO SCH ×2 (08:35→20:18)
[2019-03-06 09:00] VITALS: BP 131/70
--- NOTE | 2019-03-06 09:23 | NUR ---
Up with physical therapy, tolerating well. Not in apparent pain. Able to ambulate to rehab gym with front wheel walker, with stable with assist.
--- NOTE | 2019-03-06 14:35 | NUR ---
INTERDISCIPLINARY TEAM CONFERENCE
[2019-03-06 17:00] VITALS: BP 110/65
--- NOTE | 2019-03-06 19:41 | NUR ---
Patient received in bed, AAO x2. Able to make needs known. No acute distress or SOB noted. On room air. No Complain of pain. Physical assessment and stroke scale done. Educated patient to drink more water and use call light when he wants to go to the bathroom. Safety measures observed. Fall precaution maintained. Bed in low position, side rails up x2 for safety, brake and alarm on. call light and personal belongings within reach. Continue to monitor.
[2019-03-06 19:46] VITALS: BP 128/81
[2019-03-06] MEDS: ATORVASTATIN 20 MG TABLET PO SCH (20:19)
[2019-03-06] MEDS: DIAZEPAM 2 MG TABLET PO PRN (21:11)
[2019-03-06] MEDS: ACETAMINOPHEN 325 MG TABLET PO PRN (23:34)
--- NOTE | 2019-03-07 05:41 | NUR ---
End of the shift note Patient was stable throughout the shift, but he doesn't have a good sleep until 0330 even with diazepam 2 mg tab. No acute distress or SOB noted. On room air. No Complain of pain. Stroke sale checked. Physical assessment done. All due medications given as ordered and well tolerated. Assisted him to the bathroom as needed. Hourly round done. Safety measures observed. Fall precaution maintained. Bed in low position, side rails up x2 for safety, brake and alarm on. call light and personal belongings within reach. Continue to monitor and will endorse to the day shift nurse accordingly.
[2019-03-07 06:47] VITALS: BP 130/70
--- NOTE | 2019-03-07 08:50 | NUR ---
Received patient, awake, alert x1-2. Resting in bed. Would try to go out of bed and ambulate by himself and was asking where is parents are. Patient with baseline LOC. No new weakness noted. Not in any pain.
[2019-03-07 09:04] VITALS: BP 154/63
[2019-03-07] MEDS: VALSARTAN 80 MG TABLET PO SCH (09:04)
[2019-03-07] MEDS: MEMANTINE HCL 5 MG TABLET PO SCH (09:04)
[2019-03-07] MEDS: ASPIRIN EC 81 MG TABLET.DR PO SCH (09:04)
--- NOTE | 2019-03-07 10:45 | NUR ---
Up with , ambulating around the unit. Patient would ask when his mother would pick him up. re-oriented patient accordingly. For discharge today. Son, Reddy said he would pick patient up after his work at 4pm.
--- NOTE | 2019-03-07 15:00 | NUR ---
Discharge order obtained from Dr. Kay. Telephone order for discharge prescriptions obtained from Ritesh Bates. Instructed patient to take medications as ordered and to watch out for blood pressure before taking Diovan, stroke packet given and explained. Discharge packet and education explained to . Instructed to follow up with Dr. Rivera on 02/16/10. Patient went home, ambulatory accompanied by and son. No pain noted, no new weakness with baseline LOC.
== END 2019-03-07 15:00 | disposition home health service (06) | DRG 56 ==
PROVIDERS: ADMIT Physical Medicine & Rehabilitation Pain Medicine; ATTEND Physical Medicine & Rehabilitation Pain Medicine
DX: I69.354 Hemiplegia and hemiparesis following cerebral infarction affecting left non-dominant side (principal); N17.0 Acute kidney failure with tubular necrosis; R47.01 Aphasia; G93.49 Other encephalopathy; I69.392 Facial weakness following cerebral infarction; F03.90 Unspecified dementia, unspecified severity, without behavioral disturbance, psychotic disturbance, mood disturbance, and anxiety; I10 Essential (primary) hypertension; F01.50 Vascular dementia, unspecified severity, without behavioral disturbance, psychotic disturbance, mood disturbance, and anxiety; R41.0 Disorientation, unspecified; Z87.01 Personal history of pneumonia (recurrent); I69.398 Other sequelae of cerebral infarction
CPT/HCPCS: 36415; 70030-TC; 83735; 84100; 85025; 92507; 92523; 97110; 97112; 97116; 97165; 97530; 97535